=== PATIENT | female | born 1970 | race Caucasian/White ===

== ENCOUNTER → 2023-12-27 14:25 | Outpatient (REF) | payer BC, SELFPAY | LOC: RCS 14:25 | PROVIDERS: ATTENDING PHYSICIAN Obstetrics & Gynecology Gynecology; FAMILY PHYSICIAN Family Medicine | DX: Z01.818 Encounter for other preprocedural examination (principal) | CPT/HCPCS: 93005 ==

== ENCOUNTER → 2024-01-03 08:45 | Outpatient (REF) | payer BC, SELFPAY | LOC: CLAB 08:45 | PROVIDERS: ATTENDING PHYSICIAN Obstetrics & Gynecology Gynecology | DX: N93.9 Abnormal uterine and vaginal bleeding, unspecified (principal) | CPT/HCPCS: 88305 ==

== ENCOUNTER → 2024-01-23 06:36 | Day surgery (SDC) | payer BC, SELFPAY ==
[2024-01-23 08:05] LABS: Glucose - Point of Care 90 mg/dl (70-99)
== END ==
LOC: GI 06:36
PROVIDERS: ATTENDING PHYSICIAN Internal Medicine
DX: D12.3 Benign neoplasm of transverse colon (principal); K63.5 Polyp of colon; K57.30 Diverticulosis of large intestine without perforation or abscess without bleeding; K58.9 Irritable bowel syndrome, unspecified; K62.89 Other specified diseases of anus and rectum; D50.9 Iron deficiency anemia, unspecified; K64.4 Residual hemorrhoidal skin tags; K29.50 Unspecified chronic gastritis without bleeding; K44.9 Diaphragmatic hernia without obstruction or gangrene; Z80.0 Family history of malignant neoplasm of digestive organs
CPT/HCPCS: 45385; 45380; 88305; 82962; 88342

== ENCOUNTER → 2024-01-28 07:23 | Outpatient (REF) | payer BC, SELFPAY | LOC: WDC 07:23 | PROVIDERS: ATTENDING PHYSICIAN Nurse Practitioner Adult Health; FAMILY PHYSICIAN Family Medicine | DX: Z12.31 Encounter for screening mammogram for malignant neoplasm of breast (principal) | CPT/HCPCS: 77063; 77067 ==

== ENCOUNTER 2024-11-12 20:31 | Emergency (ER) | payer BC, SELFPAY ==
[2024-11-12] VITALS (7 sets, daily range): BP systolic 111–147; BP diastolic 72–87
[2024-11-12 20:37] LABS: Glucose - Point of Care 172 mg/dl (70-99)
[2024-11-12 21:05] LABS: % Basophils 0.5 % (0-2); % Eosinophils 1.4 % (0-6); % Immature Granulocytes 3.2 % (0-0.5); % Lymphocytes 22.5 % (20.5-51.1); % Monocytes 6.4 % (1.7-9.3); Absolute Basophils 0.1 10^3/uL (0-0.2); Absolute Eosinophils 0.2 10^3/uL (0-0.7); Absolute Immature Granulocytes 0.3 10^3/uL (0-0.05); Absolute Lymphocytes 2.4 10^3/uL (1.2-3.4); Absolute Monocytes 0.7 10^3/uL (0.1-0.6); Absolute Neutrophils 6.9 10^3/uL (1.4-6.5); Hemoglobin 12.7 g/dL (12.0-16.0); Mean Corp Hgb Conc. 33.4 g/dL (33.0-37.0); Mean Corpuscular Hgb 30.9 pg (27.0-31.0); Mean Corpuscular Volume 92.5 fL (81.0-99.0); Nucleated Red Blood Cells % 0 %; Platelet Count 211 10^3/uL (130-400); Red Blood Cell Count 4.11 10^6/uL (4.20-5.40); Red Cell Dist. Width 13.3 % (11.5-14.5); White Blood Cell Count 10.4 10^3/uL (4.8-10.8)
[2024-11-12] MEDS: ZOFRAN 4 MG IV (21:12)
[2024-11-12 21:17] LABS: ALT (SGPT) 41 U/L (0-35); AST (SGOT) 50 U/L (14-36); Acetaminophen < 10 ug/ml (10-30); Albumin 3.1 g/dl (3.5-5.0); Alkaline Phosphatase 42 U/L (38-126); Blood Urea Nitrogen 20 mg/dl (7-17); Calcium 8.8 mg/dl (8.4-10.2); Carbon Dioxide 22 mmol/L (22-30); Chloride 106 mmol/L (98-107); Glucose 174 mg/dl (70-99); Potassium 4.1 mmol/L (3.5-5.1); Sodium 139 mmol/L (135-145); Total Bilirubin 0.6 mg/dl (0.2-1.3); Total Protein 5.5 g/dl (6.3-8.2); eGFR > 60.00
[2024-11-12 21:18] LABS: Alcohol None Detected
[2024-11-12] MEDS: KEPPRA 1000 MG IV (21:20)
[2024-11-12] MEDS: MORPHINE SULFATE 4 MG IV (21:28)
--- NOTE | 2024-11-12 21:51 | ED.GENMED ---
History of Present Illness
General
Chief Complaint: Change in Mental Status
Time Seen by Provider: 11/12/24 20:40
History of Present Illness
History of Present Illness:
54-year-old female with history of diabetes presenting to the emergency department for change in mental status and headache. Patient arrives by medics. Report from medics was that patient had been having headache earlier in the day. left
the room and when he returned she was on the ground with agonal respirations. He called the ambulance and was instructed to start CPR, however patient was allegedly awake during CPR. Patient did have reportedly uncomplicated laparoscopic
hysterectomy on Saturday. When medics arrived, patient was starting to come around. Per , no seizure-like activity. On 's arrival, noted that at 7 PM, patient was reporting that her headache was worsening, frontal and going into her
neck and that is when she became unresponsive. No reported past medical history of seizures, however per medication list, is on lamotrigine. No report of any trauma or falls. On arrival, patient is awake and alert, however confused with
difficulty obtaining any additional history given her confusion.
Phy Exam
Physical Exam
Physical Exam:
General: Well-appearing, no clinical signs of dehydration
HEENT: protecting airway
Neck: appears supple
CV: Normal heart rate, regular rhythm
Resp: No accessory muscle use, no increased work of breathing, lungs clear to auscultation bilaterally
Abd: Soft and non-distended, no tenderness to palpation. Healing robotic abdominal sites from recent surgical intervention. No erythema or drainage
Extremities: No deformities, no swelling, no erythema
Neuro: alert, disoriented, however moving all extremities equally. No facial drooping. No slurred speech. Nystagmus when looking toward left.
: deferred
Rectal: deferred
Psych: Normal affect
Skin: Intact
Scores
NIH Stroke Score
Level of Consciousness: 0 - Alert
LOC Questions: 2-Neither correct
LOC Commands: 0-Performs both correctly
Best Horizontal Gaze: 0-Normal
Visual Aranda: 0=Normal, no visual loss
Facial Palsy: 0=Normal, symmetrical
Motor - Right Arm: 0=No drift 10 seconds
Motor - Left Arm: 0=No drift 10 seconds
Motor - Right Le-No drift 5 seconds
Motor - Left Le-No drift 5 seconds
Limb Ataxia: 0-Absent
Sensation: 0-Normal
Best Language: 0-No aphasia
Dysarthria: 0-Normal
Extinction and Inattention: 0-No abnormality
Total Score:: 2
Course
Orders/Labs/Results
Orders:
Orders
11/12/24 20:35
Electrocardiogram (*1) Urgent
Reason for Study: Fatigue / Weakness
EKG- Treatment ONCE
11/12/24 20:36
CT Head W/o Iv Contrast Stat
Comment:
Reason For Exam: headache
11/12/24 20:40
Urinalysis Reflex To Culture Urgent
11/12/24 20:48
CT Head & Neck Angio W/wo IV Urgent
Comment:
Reason For Exam: seizure, headache
11/12/24 20:56
Acetaminophen Urgent
Alcohol Urgent
Complete Blood Count/With Diff Urgent
Comprehensive Metabolic Panel Urgent
Salicylate Urgent
11/12/24 21:12
Ondansetron Injectable [Zofran] 4 mg .ROUTE .STK-MED ONE
Ondansetron Injectable [Zofran] 4 mg IV NOW STA
11/12/24 21:13
Levetiracetam Injectable [Keppra] 1,000 mg IV NOW STA
Ondansetron Injectable [Zofran] 4 mg IV NOW STA
11/12/24 21:23
Morphine Sulfate 4 mg IV NOW STA
11/12/24 22:17
HYDROmorphone [Dilaudid] 1 mg IV NOW STA
Abnormal Lab Results
11/12/24 11/12/24
20:35 20:56
RBC 4.11 L 10^6/uL
(4.20-5.40)
MPV 13.0 H fL
(7.4-10.4)
Abs Immat Gran (auto) 0.3 H 10^3/uL
(0-0.05)
Absolute Neuts (auto) 6.9 H 10^3/uL
(1.4-6.5)
Absolute Monos (auto) 0.7 H 10^3/uL
(0.1-0.6)
Immature Gran % 3.2 H %
(0-0.5)
BUN 20 H mg/dl
(7-17)
Glucose 174 H mg/dl
(70-99)
AST 50 H U/L
(14-36)
ALT 41 H U/L
(0-35)
Total Protein 5.5 L g/dl
(6.3-8.2)
Albumin 3.1 L g/dl
(3.5-5.0)
Salicylates < 1.0 L mg/dl
(2.0-20.0)
Acetaminophen < 10 L ug/ml
(10-30)
POC Glucose 172 H mg/dl
(70-99)
11/12/24 20:56
11/12/24 20:56
Vital Signs
Initial and Last Documented VS:
Initial Vital Signs
Pulse Resp
86 20
11/12/24 20:41 11/12/24 20:41
Last Documented Vital Signs
Temp Pulse Resp BP Pulse Ox
98.1 F 69 14 111/78 100
11/12/24 21:04 11/12/24 23:00 11/12/24 23:00 11/12/24 23:00 11/12/24 21:50
MDM/Problems Addressed
MDM/Problems Addressed:
54-year-old female with history of diabetes presenting to the emergency department for headache and change in mental status. Vital signs on arrival are normal.
On exam, patient is awake and alert, however is very confused. She has no recollection of preceding events or her recent surgery on Saturday. She does note that she is still having a headache, however is unclear on her medical history given her
confusion. She is moving all extremities equally, however does have some nystagmus on the left. In the setting of severe headache and episode of unresponsiveness, concern for stroke or intra ventricular hemorrhage versus subarachnoid hemorrhage.
For this reason patient sent emergently to CT scan for advanced imaging.
21:00 - positive for subarachnoid hemorrhage, discussed with radiology. Will obtain CT angio. Discussion with and patient, will initiate transfer to [place].
21:10 -patient accepted to [place] by from neurosurgery. Will administer Keppra bolus. Patient remains a stable, awake, alert.
22:00 -still working on transfer process, ground versus flight. Flight crew with parent difficulty flying due to weather conditions. CT angio left vertebral artery aneurysm 4.2. There is also mention of large amount of subcutaneous emphysema
within the soft tissue of the chest. Suspect that this could be secondary to patient's has been doing chest compressions. No respiratory compromise at this time.
23:25 - Transport at bedside.
*Critical Care Note
Total Time (30-74mins, 75-104mins- exclusive of procedures): 65
comment:
The high probability of a clinically significant, sudden or life threatening deterioration of the neurovascular system(s) required my full and direct attention, intervention and personal management. The aggregate critical care time was 65 minutes.
This time is in addition to time spent performing reported procedures but includes the following:
[x] Data Review and interpretation
[x] Patient assessment and monitoring of vital signs
[x] Documentation
[x] Medication orders and management
ED Attending Note
-
Portions of this chart may have been created with voice recognition software.� Occasional wrong word or��sound alike� substitutions may have occurred due to the inherent limitations of voice recognition software.
Discharge Plan
Departure
Patient Disposition: Acute Care Hospital
Date of Disposition: 11/12/24
Time of Disposition: 22:11
Patient with high blood pressure during this ER visit?: No
Condition: Critical
Discharge Problem:
Subarachnoid hemorrhage, Aneurysm of left vertebral artery
Prescriptions:
No Action
Vitamins 1 TAB tablet
lansoprazole [Prevacid] 30 MG capsule,delayed release(DR/EC)
Singulair
Sudafed
Pulmicort Flexhaler
Rhinocort
sertraline 100 MG tablet
sertraline [Zoloft] 50 MG tablet
Referrals:
DOROTHY CARPIO MD [Family Provider] -
Hospital Transfer
Other hospital: [facility]
I certify that the patient requires transfer: Yes
Discussed case with accepting physician: Dr. Garcia
Reason for transfer: specialties available
Interventions
Interventions:
*Risk Screen - Suicide Last Done: 11/12/24 21:02
*General Assessment Last Done: 11/12/24 21:02
*Neglect/Abuse Screening Last Done: 11/12/24 21:02
*ED- Fall Risk Assessment Last Done: 11/12/24 21:02
*ED COVID-19 Vaccine History Last Done: 11/12/24 21:02
ED- Pulmonary Assessment Last Done: 11/12/24 21:15
ED- Neurological Assessment Last Done: 11/12/24 21:07
ED- Cardiac Assessment Last Done: 11/12/24 21:07
Discharge Date and Time
Print Language: ROMANSH
[2024-11-12 22:23] LABS: Salicylate < 1.0 mg/dl (2.0-20.0)
[2024-11-12] MEDS: DILAUDID 1 MG IV (22:24)
== END 2024-11-12 23:30 | disposition short-term general hospital (02) ==
LOC: EMR 20:31
PROVIDERS: EMERGENCY PHYSICIAN Student in an Organized Health Care Education/Training Program; FAMILY PHYSICIAN Family Medicine
DX: I60.9 Nontraumatic subarachnoid hemorrhage, unspecified (principal); I72.6 Aneurysm of vertebral artery; E11.9 Type 2 diabetes mellitus without complications
CPT/HCPCS: 99284; 96374; 96375; 70450; 70496; 70498; 80053; 80143; 80179; 82077; 82962; 85025; 93005; Q9967

== ENCOUNTER → 2025-03-01 12:02 | Outpatient (REF) | payer BC, SELFPAY ==
[2025-03-01 12:58] LABS: Hematocrit 31.9 % (37.0-47.0); Hemoglobin 10.2 g/dL (12.0-16.0); Mean Corp Hgb Conc. 32.0 g/dL (33.0-37.0); Mean Corpuscular Volume 100.0 fL (81.0-99.0); Nucleated Red Blood Cells % 0 %; Platelet Count 139 10^3/uL (130-400); Red Cell Dist. Width 14.0 % (11.5-14.5)
[2025-03-01 13:14] LABS: Blood Urea Nitrogen 13 mg/dl (7-17); Calcium 8.9 mg/dl (8.4-10.2); Carbon Dioxide 24 mmol/L (22-30); Chloride 108 mmol/L (98-107); Glucose 74 mg/dl (70-99); Potassium 3.9 mmol/L (3.5-5.1); Sodium 137 mmol/L (135-145); eGFR > 60.00
== END ==
LOC: OLABP 12:02
PROVIDERS: ATTENDING PHYSICIAN Family Medicine
DX: I10 Essential (primary) hypertension (principal); I60.9 Nontraumatic subarachnoid hemorrhage, unspecified; E11.9 Type 2 diabetes mellitus without complications; I67.1 Cerebral aneurysm, nonruptured; E44.0 Moderate protein-calorie malnutrition
CPT/HCPCS: 36415; 80048; 85025

== ENCOUNTER → 2025-03-19 12:00 | Outpatient (REF) | payer BC, SELFPAY ==
[2025-03-19 12:57] LABS: Blood Urea Nitrogen 12 mg/dl (7-17); Calcium 9.4 mg/dl (8.4-10.2); Carbon Dioxide 25 mmol/L (22-30); Chloride 107 mmol/L (98-107); Glucose 112 mg/dl (70-99); Potassium 4.1 mmol/L (3.5-5.1); Sodium 138 mmol/L (135-145); eGFR > 60.00
[2025-03-19 13:01] LABS: Hematocrit 31.9 % (37.0-47.0); Hemoglobin 10.4 g/dL (12.0-16.0); Mean Corp Hgb Conc. 32.6 g/dL (33.0-37.0); Mean Corpuscular Volume 95.5 fL (81.0-99.0); Nucleated Red Blood Cells % 0 %; Platelet Count 217 10^3/uL (130-400); Red Cell Dist. Width 13.2 % (11.5-14.5)
== END ==
LOC: OLABP 12:00
PROVIDERS: ATTENDING PHYSICIAN Family Medicine
DX: E11.9 Type 2 diabetes mellitus without complications (principal); R55 Syncope and collapse; I10 Essential (primary) hypertension; F32.A Depression, unspecified; F41.9 Anxiety disorder, unspecified; I67.1 Cerebral aneurysm, nonruptured; R94.31 Abnormal electrocardiogram [ECG] [EKG]; D64.9 Anemia, unspecified; E78.5 Hyperlipidemia, unspecified; J30.2 Other seasonal allergic rhinitis; R26.2 Difficulty in walking, not elsewhere classified
CPT/HCPCS: 36415; 80048; 85025